=== PATIENT | male | born 1990 | race Two or more races ===

== ENCOUNTER 2019-11-27 20:53 | Emergency (ER) | payer OTHER ==
--- NOTE | 2019-11-27 21:13 | EDM.PDOC ---
ED HPI GENERAL MEDICAL PROBLEM - General Chief Complaint: ENT Problem Stated Complaint: FLU Time Seen by Provider: 11/27/19 21:13 Source of Information: Reports: Patient History Limitations: Reports: No Limitations - History of Present Illness INITIAL COMMENTS - FREE TEXT/NARRATIVE: HISTORY AND PHYSICAL: History of present illness: Patient is a 29-year-old male presents to the ED with complaint of flu like symptoms. Patient states he is having body aches, sore throat, and mild cough x 2 days. He denies fevers, chills, nausea, vomiting, diarrhea, abdominal pain. He denies significant past medical history. He is taking OTC cold medicine with some relief of symptoms. Review of systems: As per history of present illness and below otherwise all systems reviewed and negative. Past medical history: As per history of present illness and as reviewed below otherwise noncontributory. Surgical history: As per history of present illness and as reviewed below otherwise noncontributory. Social history: No reported history of drug or alcohol abuse. Family history: As per history of present illness and as reviewed below otherwise noncontributory. Physical exam: General: Patient sitting comfortably in no acute distress and nontoxic appearing HEENT: Atraumatic, normocephalic, pupils reactive, negative for conjunctival pallor or scleral icterus, mucous membranes moist, throat clear, neck supple, nontender, trachea midline. No meningeal signs. Lungs: Clear to auscultation, breath sounds equal bilaterally, chest nontender. Heart: S1S2, regular, negative for clicks, rubs, or overt murmur. Abdomen: Soft, nondistended, nontender. Negative for masses or hepatosplenomegaly. Negative for costovertebral tenderness. No rigidity, rebound , guarding. Pelvis: Stable nontender. Genitourinary: Deferred. Rectal: Deferred. Extremities: Atraumatic, negative for cords or calf pain. Neurovascular unremarkable. Neuro: Awake, alert, oriented. Cranial nerves II through XII unremarkable. Cerebellum unremarkable. Motor and sensory unremarkable throughout. Exam nonfocal. Notes: Diagnostics: influenza, strep Therapeutics: Tamiflu Prescriptions: Tamiflu Impression: Influenza A Plan: 1. Drink plenty of fluids and alternate tylenol and motrin as discussed. 2. Follow up with primary care provider 3. Return to ED as needed as discussed Definitive disposition and diagnosis as appropriate pending reevaluation and review of above. body ache Pain Score (Numeric/FACES): 5 - Related Data Allergies Allergy/AdvReac Type Severity Reaction Status Date / Time amoxicillin Allergy Hives Verified 11/27/19 21:06 Home Meds: Home Meds Oseltamivir [Tamiflu] 75 mg PO BID 5 Days #10 cap 11/27/19 [Rx] ED ROS ENT - Review of Systems Review Of Systems: Comprehensive ROS is negative, except as noted in HPI. ED EXAM, ENT - Physical Exam Exam: See Below (see dictation) Course - Vital Signs Last Recorded V/S: Last Vital Signs Temp 98.4 F 11/27/19 21:07 Pulse 100 11/27/19 21:07 Resp 18 11/27/19 21:07 BP 128/62 11/27/19 21:07 Pulse Ox - Orders/Labs/Meds Orders: Active Orders 24 hr Category Date Time Status CULTURE STREP A CONFIRMATION [RM] Stat Lab 11/27/19 21:10 Results STREP SCRN A RAPID W CULT CONF [RM] Stat Lab 11/27/19 21:10 Results Oseltamivir [Tamiflu] Med 11/27/19 21:49 Once 75 mg PO ONETIME ONE Departure - Departure Time of Disposition: 21:45 Disposition: Home, Self-Care 01 Condition: Good Clinical Impression: Influenza A - Discharge Information Referrals: PCP,Not In Area [Primary Care Provider] - Forms: ED Department Discharge Additional Instructions: The following information is given to patients seen in the emergency department who are being discharged to home. This information is to outline your options for follow-up care. We provide all patients seen in our emergency department with a follow-up referral. The need for follow-up, as well as the timing and circumstances, are variable depending upon the specifics of your emergency department visit. If you don't have a primary care physician on staff, we will provide you with a referral. We always advise you to contact your personal physician following an emergency department visit to inform them of the circumstance of the visit and for follow-up with them and/or the need for any referrals to a consulting specialist. The emergency department will also refer you to a specialist when appropriate. This referral assures that you have the opportunity for follow-up care with a specialist. All of these measure are taken in an effort to provide you with optimal care, which includes your follow-up. Under all circumstances we always encourage you to contact your private physician who remains a resource for coordinating your care. When calling for follow-up care, please make the office aware that this follow-up is from your recent emergency room visit. If for any reason you are refused follow-up, please contact the [facility] Emergency Department at and asked to speak to the emergency department charge nurse. [facility] [address] [place] [address] [id number] [facility] [address] [place] [id number] 1. Drink plenty of fluids and alternate tylenol and motrin as discussed. 2. Follow up with primary care provider 3. Return to ED as needed as discussed Sepsis Event Note - Evaluation Sepsis Screening Result: No Definite Risk - Focused Exam Vital Signs: Vital Signs Temp Pulse Resp BP 11/27/19 21:07 98.4 F 100 18 128/62 Date Exam was Performed: 11/27/19 Time Exam was Performed: 21:49 - My Orders Last 24 Hours: My Active Orders 11/27/19 21:10 CULTURE STREP A CONFIRMATION [RM] Stat STREP SCRN A RAPID W CULT CONF [RM] Stat 11/27/19 21:49 Oseltamivir [Tamiflu] 75 mg PO ONETIME ONE - Assessment/Plan Last 24 Hours: My Active Orders 11/27/19 21:10 CULTURE STREP A CONFIRMATION [RM] Stat STREP SCRN A RAPID W CULT CONF [RM] Stat 11/27/19 21:49 Oseltamivir [Tamiflu] 75 mg PO ONETIME ONE
[2019-11-27] MEDS ORDERED: Oseltamivir 75 MG Cap PO ONE (21:49)
== END 2019-11-27 22:17 | disposition home or self-care (01) ==
LOC: MW.ED 20:53
DX: J10.1 Influenza due to other identified influenza virus with other respiratory manifestations (principal)
CPT/HCPCS: 87081; 87804; 87880; 99283; A9270